=== PATIENT | female | born 1970 | race American Indian/Alaskan Native ===

== ENCOUNTER 2021-05-19 13:16 | Outpatient (CLI) | payer BC | END 2021-05-19 13:17 | disposition home or self-care (01) | LOC: LAB 13:16 | PROVIDERS: ATTEND Surgery | DX: N63.20 Unspecified lump in the left breast, unspecified quadrant (principal) | CPT/HCPCS: 88305; 88341; 88342 ==

== ENCOUNTER 2021-05-27 08:49 | Outpatient (CLI) | payer BC ==
--- NOTE | 2021-05-27 13:55 | Mammography Report ---
STEREOTACTIC GUIDED LEFT BREAST BIOPSY, 05/27/2021 LEFT DIAGNOSTIC MAMMOGRAM CLINICAL INFORMATION / INDICATION: R92.8 ABNORMAL MAMMO/ N63.21 LEFT BREAST LUMP. Patient has recent biopsy proven left breast cancer. Patient presents for stereotactic biopsy of nearby calcifications. COMPARISON: Prior outside mammogram 05/05/2021 PROCEDURE: Preliminary mammogram images of the left breast demonstrate a new biopsy clip appropriately positione d at site of the irregular focal asymmetric density in the 2:00 position of the left breast located a pproximately 9 cm from the nipple, corresponding with the site of biopsy-proven malignancy. Magnifica tion views were obtained, which demonstrate calcifications surrounding the biopsy cancer, extending u p to approximately 7 x 7 cm in extent. A portion of these calcifications along the posterior and late ral aspect were targeted for biopsy. Risks, benefits, and indications to the procedure were discussed with the patient in detail, includin g bleeding, infection, hematoma formation, and inadequate tissue sampling. The patient agreed to proc eed with both verbal and written consent. A timeout procedure was performed with 2 patient identifier s. Targeted stereotactic images were obtained of the area of interest. The targeted area was identified and coordinates were determined. The breast was cleansed and prepped in the usual sterile fashion. Li docaine 1% with and without epinephrine was used for local anesthesia. Under direct stereotatic anjelica nce, an 8 gauge Mammotome biopsy device was advanced to the correct position and multiple vacuum-assi sted core samples were obtained. Specimen radiograph was obtained which demonstrated questionable but not definitive calcifications. Additional samples were obtained, also with questionable but not defi nitive calcifications. Postbiopsy images were obtained which appeared to demonstrate adequate positio denise of the biopsy cavity. Therefore, a biopsy marker was deployed at the biopsy site. The biopsy dev ice was removed. Hemostasis was achieved with manual pressure. A sterile pressure dressing was applie d to the skin. Post-biopsy mammogram was obtained. This demonstrates the biopsy clip to be located approximately 2.5 cm superior to the site of targeted calcifications. The biopsy clip is located approximately 3.5 cm away from the clip denoting site of biopsy-proven malignancy. The patient tolerated the procedure without difficulty. No complications were encountered. Postbiopsy instructions were discussed with the patient and given in writing. The biopsy was performed in conjunction with Dr. Craft. IMPRESSION: 1. Left breast stereotactic biopsy as detailed above. Despite what appeared to be appropriate targeti ng, there are no definitive calcifications within the specimen, and the biopsy clip appears slightly superior to the site of targeted calcifications. Further management decisions can be made pending bio psy results. Biopsy results are pending and will be reported in an addendum. Signer Name: Kita Moise MD Signed: 05/27/2021 1:50 PM Workstation Name: [id number]
== END 2021-05-27 08:50 | disposition home or self-care (01) ==
LOC: SPVWC 08:49
PROVIDERS: ATTEND Surgery
DX: R92.1 Mammographic calcification found on diagnostic imaging of breast (principal); R92.8 Other abnormal and inconclusive findings on diagnostic imaging of breast; N63.21 Unspecified lump in the left breast, upper outer quadrant; Z85.3 Personal history of malignant neoplasm of breast
CPT/HCPCS: 19081; 77065; 88305; A4648

== ENCOUNTER 2021-06-10 08:44 | Outpatient (CLI) | payer BC ==
--- NOTE | 2021-06-10 11:56 | Magnetic Resonance Report ---
Bilateral breast MRI with and without contrast. History: Recent diagnosis left breast cancer Procedure: Axial T1 and T2-weighted fat-sat images were obtained precontrast. 19 cc Clariscan was in jected intravenously and serial axial T1-weighted images with fat saturation were obtained postcontra st. 3-D MIP projections, Kinetic analysis and subtraction imaging was utilized to evaluate. A Kiind.meat ed 8 channel breast coil was utilized for image acquisition. Comparison: Mammography 05/27/2021 Findings: Background level of enhancement is minimal. No suspicious axillary or clavicular nodes are identified. No abnormal bone marrow signal is seen. No significant chest wall enhancement is noted. Right breast: No suspicious lesions are seen. Left breast: The recent biopsy changes in the lateral central upper left breast, mid depth, are seen. A 13 mm spiculated mass with mild distortion and abnormal enhancement with washout is seen with a co ntained biopsy clip. This is approximately 8.3 cm from the nipple, 2 cm from the lateral skin surface and 4.5 cm from the superior skin surface, and 13.5 cm from the chest wall. Biopsy tract with hypere atul is seen. No separate areas of concerning enhancement are noted in the left breast. Impression: Known area of malignancy is seen in the left breast without separate areas of concern BIRADS: 6: Known diagnosis breast cancer Signer Name: Reji Resendiz MD Signed: 06/10/2021 11:51 AM Workstation Name: [employer]
== END 2021-06-10 08:45 | disposition home or self-care (01) ==
LOC: SPVIMAG 08:44
PROVIDERS: ATTEND Surgery
DX: C50.612 Malignant neoplasm of axillary tail of left female breast (principal)
CPT/HCPCS: A9575; C8908; 77049

== ENCOUNTER 2021-06-19 06:03 | Inpatient (IN) | payer BC ==
[2021-06-17 10:35] LABS: Alanine Aminotransferase 12 units/L (7-56); Albumin 3.9 g/dL (3.9-5); Blood Urea Nitrogen 9 mg/dL (7-17); Calcium 9.1 mg/dL (8.4-10.2); Hemolysis Index 1
[2021-06-17 10:36] LABS: BUN/Creatinine Ratio 13
[2021-06-17 10:41] LABS: Basophils % (Auto) 0.7 % (0.0-1.8); Eosinophils # (Auto) 0.1 K/mm3 (0.0-0.4); Eosinophils % (Auto) 1.3 % (0.0-4.3); Hematocrit 32.4 % (30.3-42.9); Hemoglobin 10.7 gm/dl (10.1-14.3); Lymphocytes # (Auto) 2.4 K/mm3 (1.2-5.4); Lymphocytes % (Auto) 39.4 % (13.4-35.0); Mean Corpuscular HGB Conc 33 % (30-34); Mean Corpuscular Volume 85 fl (79-97); Monocytes # (Auto) 0.3 K/mm3 (0.0-0.8); Monocytes % (Auto) 5.5 % (0.0-7.3); Platelet Count 301 K/mm3 (140-440); Red Blood Count 3.79 M/mm3 (3.65-5.03); Red Cell Distribution Width 14.5 % (13.2-15.2)
--- NOTE | 2021-06-17 17:30 | Anesthesia Consultation ---
Anesthesia Consult and Med Hx Date of service: 06/17/21 - Airway Anesthetic Teeth Evaluation: Good ROM Head & Neck: Adequate Mental/Hyoid Distance: Adequate Mallampati Class: Class III Intubation Access Assessment: Possibly Difficult - Pulmonary Exam CTA: Yes - Cardiac Exam Cardiac Exam: RRR - Pre-Operative Health Status ASA Pre-Surgery Classification: ASA3 Proposed Anesthetic Plan: General Nerve Block: FREDRICK - Pulmonary Hx Smoking: No Hx Respiratory Symptoms: No - Cardiovascular System Hx Hypertension: Yes Hx Heart Attack/AMI: No Hx Percutaneous Transluminal Coronary Angioplasty (PTCA): No - Central Nervous System CVA: No - Endocrine Hx Renal Disease: No Hx Liver Disease: No Hx Insulin Dependent Diabetes: No Hx Non-Insulin Dependent Diabetes: No Hx Thyroid Disease: No - Hematic Hx Anemia: Yes - Other Systems Hx Cancer: Yes (breast ca) Hx Obesity: Yes (BMI 49)
[~2021-06-19 06:03] MED LIST: ACETAMINOPHEN 500 MG TAB PO SCH; CELECOXIB 200 MG CAP PO NR; GABAPENTIN 300 MG CAP PO NR; LACTATED RINGERS 1,000 ML IV SCH; MIDAZOLAM 2 MG/2 ML INJ IV NR; SCOPOLAMINE TRANSDERMAL PATCH 72 HR TD NR; ceFAZolin/STERILE WATER 2 GM/20 ML SYRINGE IV NR; fentaNYL 100 MCG/2 ML INJ IV PRN
[2021-06-19] MEDS ORDERED: dexAMETHasone 4 MG/ML VIAL ONE (07:03)
[2021-06-19] MEDS ORDERED: BUPIVACAINE/PF (0.25%) 2.5 MG/ML 30 ML VIAL INFILTRATI ONE (07:03)
[2021-06-19] MEDS ORDERED: LIDOCAINE (1%) 10 MG/1 ML VIAL 20 ML MDV ONE (07:30)
[2021-06-19] MEDS ORDERED: SODIUM CHLORIDE P/F VIAL 10 ML 10 ML ONE (07:31)
[2021-06-19] MEDS ORDERED: METHYLENE BLUE 50 MG/10 ML AMP ONE (07:31)
[2021-06-19] MEDS ORDERED: BUPIVACAINE/PF (0.5%) 5 MG/1 ML 30 ML VIAL INFILTRATI ONE (07:31)
[2021-06-19] MEDS ORDERED: ONDANSETRON 4 MG/2 ML INJ ONE (07:52)
[2021-06-19] MEDS ORDERED: LIDOCAINE MPF (2%) 20 MG/1 ML VIAL 5 ML ONE (07:52)
[2021-06-19] MEDS ORDERED: SUCCINYLCHOLINE CHLORIDE 200 MG/10 ML INJ MDV ONE (07:52)
[2021-06-19] MEDS ORDERED: dexAMETHasone 20 MG/5 ML VIAL ONE (07:52)
[2021-06-19] MEDS ORDERED: propofoL 200 MG/20 ML VIAL IV ONE ×2 (07:53)
[2021-06-19] MEDS ORDERED: LIDOCAINE 1.5% /EPINEPHRINE 1:200,000 AMP (5 ML) INFILTRATI ONE (08:10)
[2021-06-19] MEDS ORDERED: BUPIVACAINE-EPINEPHRINE/PF 0.25%-1:200,000 (10 ML) VIAL INFILTRATI ONE ×2 (08:11→15:04)
[2021-06-19] MEDS ORDERED: SODIUM CHLORIDE 0.9% 250ML 250 ML ONE ×4 (08:13→08:14)
--- NOTE | 2021-06-19 08:23 | Anesthesia Day of Surgery ---
Anesthesia Day of Surgery - Day of Surgery Patient Examined: Yes Patient H&P Reviewed: Yes Patient is NPO: Yes
[2021-06-19] MEDS ORDERED: NITROGLYCERIN 2% OINT 1 GM TP ONE ×2 (08:25→08:27)
[2021-06-19] MEDS ORDERED: oxyCODONE /ACETAMINOPHEN 5-325MG TAB PO PRN ×3 (08:30→19:51)
[2021-06-19] MEDS ORDERED: ROCURONIUM 50 MG/5 ML INJ IV ONE (08:47)
[2021-06-19] MEDS ORDERED: PHENYLEPHRINE/NS 1,000 MCG/10 ML SYRINGE (OR USE) IV ONE (08:55)
[2021-06-19] MEDS ORDERED: KETAMINE/STERILE WATER 50 MG/ML SYRINGE ONE (08:56)
[2021-06-19] MEDS ORDERED: ONDANSETRON 4 MG/2 ML INJ IV PRN ×2 (09:00→19:51)
[2021-06-19] MEDS ORDERED: fentaNYL 100 MCG/2 ML INJ IV PRN (09:00)
[2021-06-19] MEDS ORDERED: ePHEDrine SULFATE 50 MG/1 ML INJ ONE (09:29)
[2021-06-19] MEDS ORDERED: HYDROmorphone 1 MG/1 ML INJ ONE (13:28)
[2021-06-19] MEDS ORDERED: METHYLENE BLUE 50 MG/10 ML AMP IV ONE (15:03)
[2021-06-19] MEDS ORDERED: SODIUM CHLORIDE 0.9% P/F 10 ML VIAL IV ONE (15:03)
[2021-06-19] MEDS ORDERED: SODIUM CHLORIDE 0.9% 1000 ML IV SOLN IV ONE (15:05)
[2021-06-19] MEDS ORDERED: ceFAZolin 1 GM VIAL ONE ×2 (15:28→15:29)
[2021-06-19] MEDS ORDERED: SODIUM CHLORIDE 0.9% 100 ML ONE (15:29)
[2021-06-19] MEDS ORDERED: KETOROLAC 30 MG/1 ML INJ ONE (15:40)
[2021-06-19] MEDS ORDERED: NEOSTIGMINE 10MG/10 ML INJ MDV ONE (15:47)
[2021-06-19] MEDS ORDERED: GLYCOPYRROLATE 0.4 MG/2 ML INJ ONE (15:47)
--- NOTE | 2021-06-19 16:51 | Post Operative Note ---
Pre-op diagnosis: Right breast invasive ductal carcinoma Findings: Right breast invasive ductal carcinoma Procedure: Right sentinel lymph node biopsy with right mastectomy mastopexy Left mastectomy with mastopexy Anesthesia: GETA, other (Erectus spinous plane block) Surgeon: DANIEL CASTILLO Estimated blood loss: other (350) Pathology: list ([place] lymphnode #1,2,3, right mastectomy, left mastectomy) Specimen disposition: to lab Condition: stable Disposition: observation
[2021-06-19] MEDS ORDERED: ONDANSETRON 4 MG ODT TAB PO PRN (16:55)
--- NOTE | 2021-06-19 17:21 | Post Anesthesia Evaluation ---
- Post Anesthesia Evaluation Patient Participated: Yes Airway Patent: Yes Stable Respiratory Function: Yes Nausea/Vomiting: No Temp > 96.8F: Yes Pain Manageable: Yes Adequeate Hydration: Yes Anesthesia Complications: No
[2021-06-19] MEDS ORDERED: MAGNESIUM HYDROXIDE (MOM) ORAL LIQD UDC PO PRN (19:51)
[2021-06-19] MEDS ORDERED: ACETAMINOPHEN 325 MG TAB PO PRN (19:51)
[2021-06-19] MEDS ORDERED: ZOLPIDEM 5 MG TAB PO PRN (19:51)
[2021-06-19] MEDS ORDERED: D5W/0.45% NACL/KCL 20 MEQ 20 MEQ/1,000 ML BAG IV SCH (19:51)
[2021-06-19] MEDS: MORPHINE 4 MG/1 ML INJ IV PRN (20:09)
[2021-06-19] MEDS: FAMOTIDINE 20 MG TAB PO SCH (21:34)
[2021-06-20 05:50] LABS: Hematocrit 24.6 % (30.3-42.9); Hemoglobin 7.8 gm/dl (10.1-14.3); Mean Corpuscular HGB Conc 32 % (30-34); Mean Corpuscular Volume 88 fl (79-97); Platelet Count 283 K/mm3 (140-440); Red Cell Distribution Width 14.9 % (13.2-15.2)
[2021-06-20 05:57] LABS: BUN/Creatinine Ratio 16; Blood Urea Nitrogen 13 mg/dL (7-17); Calcium 8.1 mg/dL (8.4-10.2); Hemolysis Index 1
[2021-06-20] MEDS: MORPHINE 4 MG/1 ML INJ IV PRN (07:02)
[2021-06-20] MEDS ORDERED: VALSARTAN 160MG TAB PO SCH (10:00)
[2021-06-20] MEDS ORDERED: hydroCHLOROthiazide 25 MG TAB PO SCH (10:00)
[2021-06-20] MEDS ORDERED: ENOXAPARIN 40 MG/0.4 ML INJ SUB-Q SCH (10:00)
[2021-06-20] MEDS: FAMOTIDINE 20 MG TAB PO SCH (10:27)
--- NOTE | 2021-06-20 14:01 | Post Anesthesia Evaluation ---
- Post Anesthesia Evaluation Patient Participated: Yes Airway Patent: Yes Stable Respiratory Function: Yes Nausea/Vomiting: No Temp > 96.8F: Yes Pain Manageable: Yes Adequeate Hydration: Yes Anesthesia Complications: No Block Receding Appropriately: Not Applicable Patient on Ventilator: No
--- NOTE | 2021-06-20 14:55 | Operative Report ---
Operative Report Operative Report: Date of procedure: 06/19/2021 Preop diagnosis: Left breast cancer Postop diagnosis: Same Procedure: Placement of breast localization devices with ultrasound guidance [place] lymph node injection Left sentinel lymph node biopsy Simple mastectomy bilateral Reduction mammoplasty bilateral Surgeon: Dr. Craft Corporate Traffic Manager: Dr. Graves Anesthesia: General endotracheal anesthesia and the rectus spinous plane block Estimated blood loss 350 cc Specimen: Left [place] lymph node #1, #2, #3 Left axillary contents Left simple mastectomy with suture at the tail of Herring (960 g) Right simple mastectomy (920 g) Findings: This is a 51-year-old -[place] lady with new finding of a invasive ductal carcinoma in the upper outer quadrant of the left breast. She was also noting that she had significant Mastel megaly and was requesting smaller breast size after the surgery and a symmetry procedure to be done on the opposite side. The patient is taken to the OR and under general anesthetic after in a rectus spinous block was done by anesthesia the patient undergoes a general endotrachea l anesthesia. In the preop area markings for bilateral reduction mammoplasty were completed. [place] lymph node injection (77344) and sentinel lymph node biopsy left axilla ([id number]) After induction 1 cc of technetium was injected around the nipple areolar complex. In addition methylene blue and a 50-50 mix with saline was injected. The methylene blue was isolated to the areas of the crescent mastopexy. The breast is then prepped with Betadine to include the axilla and the XXX arm. The arm is circumferentially draped. The neoprobe was used to locate the approximate location of the sentinel lymph node. An incision is made 1 cm below the hairline in the axilla. Sharp dissection is done with the electrocautery and 2 sentinel lymph nodes are found. When this is completed sterile gauze is placed into the wound. Placement of breast localization devices with ultrasound guidance ([id number]) The chest wall anteriorly including both breasts and the left axilla were then prepped with ChloraPrep and draped in a sterile fashion. A sterile ultrasound probe linear array was then used to identify the cancer location in the upper outer quadrant. Localization wires were placed cephalad to the tumor and caudal to the tumor. Bilateral simple complete mastectomy () bilateral reduction mammoplasty() Within the [place] pattern that was preoperatively drawn on the chest wall bilaterally the lower part of the breast is de-epithelialized. On the left side the nipple areolar complex is downsized to about 4.5 cm and a superior medial pedicle is preserved. Through the [place] pattern flaps are elevated superiorly and inferiorly. The localization wires are kept in site to ensure that the flaps were particularly thin at the area overlying the tumor. Medial and lateral dissections were then undertaken to complete the simple mastectomy. Superior medially a pillar of tissue with the blood supply to the nipple is preserved. The simple mastectomy is removed off the field after putting a silk stitch the tail of Nima. The specimen weighs 960 g. The nipple areolar complex is then rotated up to the superior portion of the [place] pattern incision where a circular pattern has been cut out. Interrupted sutures of 3-0 Monocryl I then used to close the incision around the nipple areolar complex in its new location. Hemostasis is good. A CHOLO drain is placed from the axilla into the area of the mastectomy and then allowed to exit lateral to the mastectomy above the inframammary line and its incision. The CHOLO drain is sutured into place with a 2-0 Vicryl suture. The inverted T incision is then closed with interrupted Vicryl followed by a subcuticular closure. 2-0Quill is used for this purpose. Attention is then turned to the right breast for the symmetry procedure. Through the [place] pattern again the inferior aspect of the incision is de- epithelialized. A 4.5 cm nipple areolar complex is preserved on the inferior pillar of tissue and a superior medial pillar tissue. Through the [place]ford pattern mastectomy flaps are raised superiorly and inferiorly and then medially and laterally. The right mastectomy specimen is weight at 920 g. The nipple areolar complex is sutured into position at the upper end of the [place] pattern again with interrupted 3-0 Monocryl. A CHOLO drain is placed to the mas tectomy site and allowed to exit through the lateral aspect of the chest wall. It is sutured in place with a 2-0 nylon suture. The inverted T flaps are also closed again with 3-0 Vicryl followed by a 2-0 Quill suture. NISHA wound VAC dressings were placed on the wounds. Compression dressing is placed over this. Patient tolerated seizure well.
[2021-06-20 15:55] VITALS: BP 112/59
== END 2021-06-20 17:25 | disposition home or self-care (01) | DRG 580 ==
LOC: INTOOBSV 06:03 → 3A 06:03 → OB 17:29 → OBSVTOIN 06-20 09:32
PROVIDERS: ADMIT Surgery; ATTEND Surgery
PROC: 07B60ZX Excision of Left Axillary Lymphatic, Open Approach, Diagnostic (ICD-10-PCS; principal; 2021-06-20)
PROC: 0HBV0ZZ Excision of Bilateral Breast, Open Approach (ICD-10-PCS; 2021-06-20)
PROC: 0HTV0ZZ Resection of Bilateral Breast, Open Approach (ICD-10-PCS; 2021-06-20)
DX: C50.912 Malignant neoplasm of unspecified site of left female breast (principal); Z68.42 Body mass index [BMI] 45.0-49.9, adult; I10 Essential (primary) hypertension; E66.9 Obesity, unspecified
CPT/HCPCS: 36415; 64450; 80048; 80053; 84703; 85025; 88307; 88309; 88333; G0378; J1815; J3490; J7120; J7121; J8610; Q0162; G0379; J0330; J0690; J1100; J1170; J1650; J1885; J2250; J2270; J2370; J2405; J2704; J2710; J3010; J7030; J7050; Q9968; U0003

== ENCOUNTER 2021-11-13 09:48 | Outpatient (CLI) | payer BC | END 2021-11-13 09:49 | disposition home or self-care (01) | LOC: LABHHL 09:48 | PROVIDERS: ATTEND Surgery | DX: N63.32 Unspecified lump in axillary tail of the left breast (principal) | CPT/HCPCS: 88304; 88305 ==